=== PATIENT | male | born 1995 | race Caucasian/White ===

== ENCOUNTER 2019-09-19 17:43 | Emergency (ER) | payer OTHER ==
[~2019-09-19] VITALS: Ht 172.7 cm; Wt 71.2 kg
[~2019-09-19 17:43] MED LIST: AMOX1TAB12 PO
[2019-09-19] MEDS ORDERED: PEPCID AC10 MG (17:59)
== END 2019-09-19 20:55 | disposition home or self-care (01) ==
LOC: ER 17:43
DX: K29.70 Gastritis, unspecified, without bleeding (principal)